=== PATIENT | female | born 1985 | race Hispanic/Latino ===

== ENCOUNTER 2017-12-16 22:00 | Emergency (ER) | payer OTHER ==
[~2017-12-16] VITALS: Ht 162.6 cm; Wt 89.8 kg
[2017-12-16] MEDS ORDERED: ONDANSETRON HCL 4 MG ORAL DISINTEGRATING TAB SL ONE (22:45)
[2017-12-16] MEDS ORDERED: KETOROLAC TROMETHAMINE 60 MG/2 ML VIAL IM ONE (23:00)
[2017-12-16] MEDS ORDERED: ZOFRAN ODT4 MG SL (23:15)
[2017-12-16] MEDS ORDERED: BROMFED DM COU118 ML PO (23:15)
[2017-12-16] MEDS ORDERED: IBUPROFEN400 MG PO (23:15)
[2017-12-17 00:04] VITALS: BP 142/80
== END 2017-12-16 23:35 | disposition home or self-care (01) ==
LOC: FSED 22:00
DX: R05 Cough (principal); H92.02 Otalgia, left ear; B34.9 Viral infection, unspecified
CPT/HCPCS: 81025; 96372; 99283; J1885

== ENCOUNTER 2019-06-14 20:34 | Emergency (ER) | payer OTHER ==
[~2019-06-14] VITALS: Ht 160 cm; Wt 93.5 kg
[~2019-06-14 20:34] MED LIST: BROMFED DM COU118 ML PO; IBUPROFEN400 MG PO; ZOFRAN ODT4 MG SL
[2019-06-14] MEDS ORDERED: ONDANSETRON HCL INJ 2MG/ML 2ML 2 MG/ML VIAL IV STA (21:09)
[2019-06-14] MEDS ORDERED: DICYCLOMINE HCL 20 MG TAB PO ONE ×2 (21:15→23:15)
[2019-06-14] MEDS ORDERED: SODIUM CHLORIDE 0.9% 1000ML 1,000 ML IV SCH (21:15)
[2019-06-14] MEDS ORDERED: DICYCLOMINE HCL 10 MG CAP ONE ×2 (21:33→23:14)
[2019-06-15] MEDS ORDERED: ONDANSETRON ODT8 MG PO (00:18)
[2019-06-15] MEDS ORDERED: LEVSIN0.125 MG SL (00:19)
[2019-06-15 03:57] VITALS: BP 136/77
== END 2019-06-15 00:35 | disposition home or self-care (01) ==
LOC: FSED 20:34
DX: R11.2 Nausea with vomiting, unspecified (principal); R19.7 Diarrhea, unspecified; R10.84 Generalized abdominal pain; A08.0 Rotaviral enteritis; E86.9 Volume depletion, unspecified
CPT/HCPCS: 80053; 81025; 96374; 99283; J2405; J7030

== ENCOUNTER 2019-07-09 13:39 | Emergency (ER) | payer OTHER ==
[~2019-07-09] VITALS: Ht 160 cm; Wt 92.1 kg
[~2019-07-09 13:39] MED LIST changes: +LEVSIN0.125 MG SL; +ONDANSETRON ODT8 MG PO
[2019-07-09] MEDS ORDERED: PENICILLIN G BENZATHINE LA 1.2 MU TBX IM STA (14:02)
[2019-07-09] MEDS ORDERED: IBUPROFEN 600 MG TAB PO STA (14:04)
[2019-07-09] MEDS ORDERED: ZOFRAN4 MG PO (14:08)
[2019-07-09] MEDS ORDERED: ONDANSETRON HCL 4 MG ORAL DISINTEGRATING TAB ONE (14:11)
[2019-07-09] MEDS ORDERED: PENICILLIN G BENZATHINE LA 1.2 MU TBX ONE (14:11)
[2019-07-09] MEDS ORDERED: IBUPROFEN 200 MG TAB ONE (14:11)
[2019-07-09] MEDS ORDERED: ONDANSETRON HCL 4 MG ORAL DISINTEGRATING TAB PO ONE (14:15)
[2019-07-09 14:32] VITALS: BP 99/53
== END 2019-07-09 14:30 | disposition home or self-care (01) ==
LOC: FSED 13:39
DX: R50.9 Fever, unspecified (principal); H92.01 Otalgia, right ear; R11.2 Nausea with vomiting, unspecified; R19.7 Diarrhea, unspecified; J03.00 Acute streptococcal tonsillitis, unspecified; B34.9 Viral infection, unspecified
CPT/HCPCS: 96372; 99283; J0561; Q0162

== ENCOUNTER 2019-11-12 14:40 | Emergency (ER) | payer OTHER ==
[~2019-11-12] VITALS: Ht 160 cm; Wt 93.6 kg
[~2019-11-12 14:40] MED LIST changes: +ZOFRAN4 MG PO
[2019-11-12 19:32] VITALS: BP 130/75
== END 2019-11-12 19:05 | disposition home or self-care (01) ==
LOC: FSED 14:40
DX: J10.1 Influenza due to other identified influenza virus with other respiratory manifestations (principal); Z88.5 Allergy status to narcotic agent
CPT/HCPCS: 81025; 83518; 87400; 99282

== ENCOUNTER 2019-11-13 20:54 | Emergency (ER) | payer OTHER ==
[~2019-11-13] VITALS: Ht 160 cm; Wt 93.4 kg
[2019-11-13] MEDS ORDERED: PREDNISONE 20 MG TAB PO STA (22:36)
[2019-11-13] MEDS ORDERED: ALBUTEROL/IPRATROPIUM 3 ML NEB NEB ONE (22:45)
[2019-11-13 23:22] LABS: COLOR,URINE YELLOW (YELLOW); KETONES,URINE NEGATIVE (NEGATIVE); LEUKOCYTE ESTERASE ,URINE NEGATIVE (NEGATIVE); NITRITE,URINE NEGATIVE (NEGATIVE); PROTEIN,URINE DIPSTICK NEGATIVE (NEGATIVE)
[2019-11-13 23:23] LABS: BILIRUBIN,URINE NEGATIVE (NEGATIVE); CLARITY,URINE SL CLOUDY (CLEAR); URINE UROBILINOGEN 1 mg/dL (0.2 - 1)
[2019-11-13 23:32] LABS: BACTERIA,URINE MANY /HPF; EPITHELIAL CELLS,URINE MANY /LPF; MUCUS,URINE MANY (RARE); WBC,URINE (MAN) 0-5 /HPF (0-5)
--- NOTE | 2019-11-13 23:56 | Diagnostic Imaging Report ---
EXAMINATION: CHEST 2 VIEWS INDICATION: Cough. COMPARISON: None FINDINGS: TUBES and LINES: None. LUNGS: Lungs are well inflated. Mild perihilar, peribronchial thickening and perihilar streaky densities may reflect viral infection versus reactive airway disease. There is no evidence of pneumonia or pulmonary edema. PLEURA: No pleural effusion or pneumothorax. HEART AND MEDIASTINUM: The cardiomediastinal silhouette is unremarkable. BONES AND SOFT TISSUES: No acute osseous lesion. Soft tissues are unremarkable. UPPER ABDOMEN: No free air under the diaphragm. IMPRESSION: Mild viral infection versus reactive airway disease. No focal consolidation. Signed by: Dr. Arnav Miller M.D. on 11/13/2019 11:54 PM
== END 2019-11-14 01:16 | disposition home or self-care (01) ==
LOC: ER 20:54
DX: R05 Cough (principal); J10.1 Influenza due to other identified influenza virus with other respiratory manifestations; N30.91 Cystitis, unspecified with hematuria
CPT/HCPCS: 71046; 81001; 93005; 94640; 99283; J7512

== ENCOUNTER 2023-09-15 21:40 | Emergency (ER) | payer OTHER ==
[~2023-09-15] VITALS: Ht 160 cm; Wt 99.8 kg
[2023-09-15 21:48] VITALS: O2SAT 100
[2023-09-15 22:17] LABS: BILIRUBIN,URINE NEGATIVE (NEGATIVE); CLARITY,URINE SL CLOUDY (CLEAR); COLOR,URINE YELLOW (YELLOW); GLUCOSE, URINE NEGATIVE (NEGATIVE); KETONES,URINE NEGATIVE (NEGATIVE); LEUKOCYTE ESTERASE ,URINE NEGATIVE (NEGATIVE); NITRITE,URINE POSITIVE (NEGATIVE); PH,URINE 6 (5 - 7); PROTEIN,URINE DIPSTICK NEGATIVE (NEGATIVE); URINE UROBILINOGEN 0.2 mg/dL (0.2 - 1)
[2023-09-15 22:32] LABS: BACTERIA,URINE MANY /HPF; EPITHELIAL CELLS,URINE FEW /LPF; RBC,URINE 0-5 /HPF (0-5); WBC,URINE (MAN) 0-5 /HPF (0-5)
[2023-09-15 22:52] LABS: PREGNANCY TEST, URINE NEGATIVE (NEGATIVE)
[2023-09-15] MEDS ORDERED: ORPHENADRINE CITRATE 30 MG/ML VIAL ONE (22:59)
[2023-09-15] MEDS ORDERED: ORPHENADRINE CITRATE 30 MG/ML VIAL IM ONE (23:00)
[2023-09-15] MEDS ORDERED: KETOROLAC TROMETHAMINE 60 MG/2 ML VIAL IM ONE (23:00)
[2023-09-15] MEDS ORDERED: ORPHENADRINE C100 MG PO (23:16)
[2023-09-15] MEDS ORDERED: NAPROSYN500 MG PO (23:16)
== END 2023-09-15 23:31 | disposition home or self-care (01) ==
LOC: ER 21:54
DX: S39.012A Strain of muscle, fascia and tendon of lower back, initial encounter (principal); R19.7 Diarrhea, unspecified
CPT/HCPCS: 81001; 81025; 99283; J1885; J2360